=== PATIENT | female | born 1955 | race Asian ===

== ENCOUNTER 2024-02-04 15:24 | Inpatient (IN) | payer MEDICAID, MEDICARE ==
[~2024-02-04] VITALS: Ht 160 cm; Wt 63.5 kg
[2024-02-04 15:41] VITALS: BP 148/69; PULSE 111; RESP 20; TEMP 98; O2SAT 94
[2024-02-04] MEDS: NACL 0.9% 1,000 ML IV SCH ×2 (16:49→19:30)
[2024-02-04 16:53] LABS: BASOPHILS % (AUTO) 0.3 % (0.0-2.0); EOSINOPHILS % (AUTO) 0.2 % (0.0-4.0); HEMATOCRIT 39.2 % (36-48); LYMPHOCYTES # (AUTO) 1.4 K/uL (2.5-16.5); LYMPHOCYTES % (AUTO) 19.7 % (20.5-51.1); MEAN CORPUSCULAR HEMOGLOBIN 28 pg (27-31); MEAN CORPUSCULAR HGB CONC 33 g/dL (33-37); MEAN CORPUSCULAR VOLUME 83.1 fL (80-94); MONOCYTES # (AUTO) 1.1 K/uL (0.8-1.0); MONOCYTES % (AUTO) 14.8 % (1.7-9.3); NEUTROPHILS # (AUTO) 4.7 K/uL (1.8-7.7); PLATELET COUNT (AUTO) 178 K/uL (140-450); RED BLOOD CELL COUNT(AUTO) 4.72 MIL/uL (4.20-5.40); RED CELL DISTRIBUTION WIDTH 14.3 % (11.6-13.7); WHITE BLOOD COUNT (AUTO) 7.2 K/uL (4.8-10.8)
[2024-02-04 17:08] LABS: ANION GAP 12.8 (8-16); CALCIUM 8.9 mg/dL (8.5-10.1); CARBON DIOXIDE 28.7 mmol/L (21-32); CREATININE 0.8 mg/dL (0.6-1.3); POTASSIUM 3.5 mmol/L (3.5-5.1)
[2024-02-04 17:12] LABS: PARTIAL THROMBOPLASTIN TIME 23.5 secs (22-35.6); PROTHROMBIN TIME 10.5 secs (10.8-13.4)
[2024-02-04 17:26] LABS: ALANINE AMINOTRANSFERASE 23 U/L (12-78); ALBUMIN 3.7 g/dL (3.4-5.0); ALKALINE PHOSPHATASE 69 U/L (50-136); ASPARTATE AMINOTRANSFERASE 25 U/L (15-37); BILIRUBIN,DIRECT 0.1 mg/dL (0.0-0.3); CREATINE KINASE, TOTAL 458 U/L (26-192); THYROID STIMULATING HORMONE 2.04 uIU/mL (0.34-3.74); TOTAL BILIRUBIN 0.6 mg/dL (0.0-1.0); TOTAL PROTEIN, SERUM 7.7 g/dL (6.4-8.2)
[2024-02-04 17:31] LABS: LACTIC ACID 2.4 mmol/L (0.4-2.0)
[2024-02-04 17:57] LABS: BILIRUBIN,URINE NEGATIVE (NEGATIVE); BLOOD, URINE NEGATIVE (NEGATIVE); COLOR,URINE YELLOW (YELLOW); LEUKOCYTE ESTERASE ,URINE 1+ (NEGATIVE); NITRITE, URINE NEGATIVE (NEGATIVE); PROTEIN,URINE NEGATIVE (NEGATIVE); UGLUCOSE NEGATIVE (NEGATIVE); UROBILINOGEN,URINE 0.2 EU/dL (0.2 - 1)
[2024-02-04 18:01] LABS: APPEARANCE,URINE SLIGHTLY HAZY (CLEAR)
[2024-02-04 18:03] LABS: BACTERIA,URINE 1+ /HPF (None Seen); MUCUS,URINE None Seen /LPF (None Seen); RBC,URINE 0 /HPF (0-5); SQUAMOUS EPITHELIAL CELL,UR 0-3 (FEW) /LPF (0-3 (FEW))
[2024-02-04] MEDS ORDERED: cefTRIAXone 1,000 MG VIAL ONE (18:07)
[2024-02-04] MEDS: NACL 0.9% 1,000 ML IV ONE (18:21)
[2024-02-04 18:26] LABS: AMPHETAMINE, URINE NEGATIVE ng/ml (NEG <=1000); BARBITURATE, URINE NEGATIVE ng/ml (NEG <=200); BENZODIAZEPINE, URINE NEGATIVE ng/mL (NEG <=200); COCAINE, URINE NEGATIVE ng/mL (NEG <=300)
[2024-02-04 18:27] LABS: CANNABINOID, URINE NEGATIVE ng/mL (NEG <=50); OPIATE, URINE NEGATIVE ng/mL (NEG <=2000); PHENCYCLIDINE SCREEN,URINE NEGATIVE ng/mL (NEG <=25)
[2024-02-04] MEDS ORDERED: ZOLPIDEM 5 MG TAB PO PRN (19:30)
[2024-02-04] MEDS ORDERED: ONDANSETRON 4 MG/2 ML VIAL IVP PRN (19:30)
[2024-02-04] MEDS ORDERED: hydrALAZINE 20 MG/ML VIAL IVP PRN (19:35)
[2024-02-04 19:49] VITALS: O2SAT 96
[2024-02-04 23:16] VITALS: O2SAT 96
[2024-02-05] VITALS (8 sets, daily range): BP systolic 127–135; BP diastolic 57–84; PULSE 62–94; RESP 16–18; TEMP 97.7–98.3; O2SAT 89–99
[2024-02-05] MEDS: LORazepam 1 MG TAB PO PRN (04:15)
[2024-02-05] MEDS: HYDROcodone/APAP 5/325 MG 1 TAB TAB PO PRN (04:15)
[2024-02-05 07:07] LABS: HEMATOCRIT 36.7 % (36-48); HEMOGLOBIN 12.2 g/dL (12.0-16.0); MEAN CORPUSCULAR HEMOGLOBIN 28 pg (27-31); MEAN CORPUSCULAR HGB CONC 33 g/dL (33-37); MEAN CORPUSCULAR VOLUME 84.1 fL (80-94); PLATELET COUNT (AUTO) 57 K/uL (140-450); RED BLOOD CELL COUNT(AUTO) 4.37 MIL/uL (4.20-5.40); RED CELL DISTRIBUTION WIDTH 14.7 % (11.6-13.7); WHITE BLOOD COUNT (AUTO) 7.8 K/uL (4.8-10.8)
[2024-02-05 07:58] LABS: CALCIUM 7.5 mg/dL (8.5-10.1); CARBON DIOXIDE 25.7 mmol/L (21-32); CREATININE 0.6 mg/dL (0.6-1.3); POTASSIUM 3.7 mmol/L (3.5-5.1); TOTAL BILIRUBIN 0.4 mg/dL (0.0-1.0); TOTAL PROTEIN, SERUM 6.6 g/dL (6.4-8.2)
[2024-02-05 08:01] LABS: BASOPHILS % (MANUAL) 1 % (0-2); EOSINOPHILS % (MANUAL) 1 % (0-4)
[2024-02-05 08:02] LABS: LYMPHOCYTES % (MANUAL) 25 % (20-46); MONOCYTES % (MANUAL) 13 % (5-12)
[2024-02-05 08:03] LABS: PLATELET ESTIMATE GIANT PLATELET SEEN
[2024-02-05] MEDS: PANTOPRAZOLE 40 MG INJ VIAL IVP SCH (09:27)
[2024-02-05] MEDS: DOCUSATE SODIUM 100 MG GELCAP PO SCH (09:27)
[2024-02-05 13:30] LABS: CREATINE KINASE, TOTAL 420 U/L (26-192)
[2024-02-06] VITALS: BP 127/57; PULSE 62; RESP 16; TEMP 98.3; O2SAT 89
[2024-02-06 04:00] VITALS: BP 135/52; PULSE 74; RESP 22; TEMP 98.2; O2SAT 94
[2024-02-06 06:51] LABS: BASOPHILS # (AUTO) 0.1 K/uL (0.00-0.22); BASOPHILS % (AUTO) 0.9 % (0.0-2.0); EOSINOPHILS # (AUTO) 0.2 K/uL (0-0.4); EOSINOPHILS % (AUTO) 3.9 % (0.0-4.0); HEMATOCRIT 34.6 % (36-48); HEMOGLOBIN 11.6 g/dL (12.0-16.0); LYMPHOCYTES # (AUTO) 1.8 K/uL (2.5-16.5); LYMPHOCYTES % (AUTO) 30.7 % (20.5-51.1); MEAN CORPUSCULAR HEMOGLOBIN 28 pg (27-31); MEAN CORPUSCULAR HGB CONC 34 g/dL (33-37); MEAN CORPUSCULAR VOLUME 83.2 fL (80-94); MONOCYTES # (AUTO) 0.9 K/uL (0.8-1.0); MONOCYTES % (AUTO) 15.2 % (1.7-9.3); NEUTROPHILS % (AUTO) 49.3 % (42.2-75.2); PLATELET COUNT (AUTO) 157 K/uL (140-450); RED BLOOD CELL COUNT(AUTO) 4.16 MIL/uL (4.20-5.40); RED CELL DISTRIBUTION WIDTH 14.4 % (11.6-13.7)
[2024-02-06 07:17] LABS: ALBUMIN 2.9 g/dL (3.4-5.0); ANION GAP 12.7 (8-16); CALCIUM 7.9 mg/dL (8.5-10.1); CARBON DIOXIDE 27.1 mmol/L (21-32); CREATININE 0.6 mg/dL (0.6-1.3); POTASSIUM 3.8 mmol/L (3.5-5.1); TOTAL BILIRUBIN 0.3 mg/dL (0.0-1.0); TOTAL PROTEIN, SERUM 6.5 g/dL (6.4-8.2)
[2024-02-06 08:00] VITALS: BP 155/83; PULSE 86; RESP 17; TEMP 98.3; O2SAT 95
[2024-02-06 12:59] VITALS: BP 155/83; PULSE 86; RESP 17; TEMP 98.3
[2024-02-06] MEDS ORDERED: NITR100C7 PO (13:57)
== END 2024-02-06 15:10 | DRG 52 ==
LOC: MED 15:24 → EDBD 19:29 → MTU 19:29
PROVIDERS: ADMIT Student in an Organized Health Care Education/Training Program; ATTEND Student in an Organized Health Care Education/Training Program
DX: G93.41 Metabolic encephalopathy (principal); M62.82 Rhabdomyolysis; N39.0 Urinary tract infection, site not specified; Z73.6 Limitation of activities due to disability
CPT/HCPCS: 36415; 70450; 71045; 80048; 80053; 80076; 80305; 81001; 82140; 82550; 82553; 83605; 83880; 84443; 84484; 85025; 85610; 85730; 87040; 87081; 87086; 93005; 96361; 96365; 97116; 97163-GP; 97530; 99285; C9113; J0696; J7060